=== PATIENT | female | born 1945 | race Caucasian/White ===

== ENCOUNTER 2018-08-08 13:14 | Inpatient (IN) | payer OTHER ==
[~2018-08-08] VITALS: Ht 154.9 cm; Wt 55.8 kg
[2018-08-08 13:56] LABS: MEAN CORPUSCULAR HEMOGLOBIN 32.8 pg (27.0-34.8); MEAN CORPUSCULAR HGB CONC 33.5 g/dL (32.4-35.8); MEAN PLATELET VOLUME 7.4 fL (7.4-10.4); PLATELET COUNT 228 x10^3/uL (130-400); RED BLOOD COUNT 4.24 x10^6/uL (3.82-5.3)
[2018-08-08 14:03] LABS: ANION GAP 6 mmol/L (5-15); CHLORIDE 101 mmol/L (98-107)
[2018-08-08 14:05] LABS: CREATININE 1.17 mg/dL (0.55-1.02)
[2018-08-08] MEDS ORDERED: AZITHROMYCIN 500 MG in SODIUM CHLORIDE 0.9% 250 ML IV ONE (14:30)
[2018-08-08] MEDS ORDERED: CEFTRIAXONE PMX 1GM/50ML 50 ML IVPB ONE (14:30)
[2018-08-08 14:31] LABS: BASOPHILS # (AUTO) 0.03 x10^3/uL (0-0.1); BASOPHILS % (AUTO) 0 % (0-1); EOSINOPHILS # (AUTO) 0.04 x10^3/uL (0-0.4); EOSINOPHILS % (AUTO) 0 % (1-7); LYMPHOCYTES # (AUTO) 1.35 x10^3/uL (1-3.4); LYMPHOCYTES % (AUTO) 6 % (22-44); MD SCAN; MONOCYTES # (AUTO) 1.21 x10^3/uL (0.2-0.8); MONOCYTES % (AUTO) 5 % (2-9); NEUTROPHILS # (AUTO) 21.47 x10^3/uL (1.8-6.8); NEUTROPHILS % (AUTO) 89 % (42-75)
[2018-08-08 14:32] LABS: FREE T4 (FREE THYROXINE) 1.34 ng/dL (0.76-1.46); THYROID STIMULATING HORMONE 3.3 mIU/L (0.358-3.740)
[2018-08-08] MEDS ORDERED: CEFTRIAXONE PMX 1GM/50ML 50 ML ONE (14:50)
[2018-08-08] MEDS ORDERED: SODIUM CHLORIDE FLUSH 10ML SYR IVF PRN (15:30)
[2018-08-08] MEDS ORDERED: MAGN400T36 PO (15:42)
[2018-08-08] MEDS ORDERED: ROSU20TA PO (15:42)
[2018-08-08] MEDS ORDERED: ASPI-515 PO (15:42)
[2018-08-08] MEDS ORDERED: LOSA25TA6 PO (15:42)
[2018-08-08] MEDS ORDERED: POTA25TA4 PO (15:42)
[2018-08-08] MEDS ORDERED: LEVO25TA4 PO (15:42)
[2018-08-08] MEDS ORDERED: BISO5TAB2 PO (15:42)
[2018-08-08] MEDS ORDERED: METF500T27 PO (15:42)
[2018-08-08] MEDS ORDERED: CHOL100014 PO (15:42)
[2018-08-08] MEDS ORDERED: BUPR150T73 PO (15:42)
[2018-08-08 16:11] VITALS: BP 144/81
[2018-08-08] MEDS ORDERED: ONDANSETRON 2MG/ML, 2ML IVPush PRN (17:30)
[2018-08-08] MEDS ORDERED: LABETALOL 5MG/ML, 20ML IVPush PRN (17:30)
[2018-08-08] MEDS ORDERED: ONDANSETRON ODT 4 MG PO PRN (17:30)
[2018-08-08] MEDS ORDERED: POLYETHYLENE GLYCOL 17 GM PACKET PO PRN (17:30)
[2018-08-08] MEDS ORDERED: morphine SULFATE 10 MG/ML, 1ML IVPush PRN (17:30)
[2018-08-08] MEDS ORDERED: ALBUTEROL SULFATE 2.5 MG/3 ML ONE (17:43)
[2018-08-08] MEDS: ALBUTEROL SULFATE 2.5 MG/3 ML NPPB PRN (17:45)
[2018-08-08 17:54] LABS: CHOL/HDL RATIO 3.8; LDL/HDL RATIO 1.7 (0.5-3.0)
[2018-08-08] MEDS: ENOXAPARIN 40 MG/0.4 ML SQ SCH (18:00)
[2018-08-08] MEDS: SODIUM CHLORIDE 0.9% 1,000 ML IV SCH (18:37)
[2018-08-08 18:40] VITALS: BP 122/69
[2018-08-08] MEDS ORDERED: TEMPLATE NON-FORMULARY MED. (Rosuvastatin Calcium** (Crestor**) 20 MG) PO SCH (21:00)
[2018-08-08] MEDS: BUPROPION SR 150 MG TABLET PO SCH (21:49)
[2018-08-08] MEDS: ATORVASTATIN 40 MG TABLET PO SCH (21:49)
[2018-08-09 01:47] VITALS: BP 126/70
[2018-08-09] MEDS: SODIUM CHLORIDE 0.9% 1,000 ML IV SCH ×3 (02:36→18:09)
[2018-08-09 05:57] LABS: CHLORIDE 111 mmol/L (98-107)
[2018-08-09 06:18] LABS: ALANINE AMINOTRANSFERASE 25 U/L (12-78); ALBUMIN 2.3 g/dL (3.4-5.0); ALKALINE PHOSPHATASE 89 U/L (45-117); ANION GAP 7 mmol/L (5-15); BILIRUBIN,TOTAL 0.8 mg/dL (0.2-1.0); CALCIUM 8.1 mg/dL (8.5-10.1); CREATININE 0.77 mg/dL (0.55-1.02)
[2018-08-09 06:21] LABS: HEMOGLOBIN A1C 5.8 % (4.2-6.3)
[2018-08-09] MEDS: ALBUTEROL SULFATE 2.5 MG/3 ML NPPB SCH ×5 (07:00→19:25)
[2018-08-09 07:13] VITALS: BP 108/60
[2018-08-09 07:24] LABS: MEAN CORPUSCULAR HEMOGLOBIN 32.5 pg (27.0-34.8); MEAN CORPUSCULAR HGB CONC 33.7 g/dL (32.4-35.8); MEAN CORPUSCULAR VOLUME 96.5 fL (80-100); MEAN PLATELET VOLUME 7.8 fL (7.4-10.4); PLATELET COUNT 193 x10^3/uL (130-400); RED BLOOD COUNT 3.56 x10^6/uL (3.82-5.3); RED CELL DISTRIBUTION WIDTH 14.2 % (9.6-15.2)
[2018-08-09 07:25] LABS: MD YES
[2018-08-09 08:14] LABS: <PLATELET ESTIMATE> ADEQUATE; <PLT MORPHOLOGY> NORMAL PLT MORPH; <RBC MORPHOLOGY> NORMAL; EOS#(MANUAL) 0.28 x10^3/uL (0.0-0.4); EOS% (MANUAL) 2 % (1-7); LYMPH#(MANUAL) 1.95 x10^3/uL (1-3.4); LYMPHS% (MANUAL) 14 % (22-44); MONOS#(MANUAL) 0.28 x10^3/uL (0.3-2.7); MONOS% (MANUAL) 2 % (2-9); SEGS% (MANUAL) 82 % (42-75)
[2018-08-09] MEDS: SENNA/DOCUSATE TABLET PO SCH (08:36)
[2018-08-09] MEDS: LEVOTHYROXINE 50 MCG TABLET PO SCH (08:38)
[2018-08-09] MEDS: CHOLECALCIFEROL 1,000 UNIT TABLET PO SCH (08:38)
[2018-08-09] MEDS: ASPIRIN 81 MG TABLET EC PO SCH (08:38)
[2018-08-09] MEDS: LOSARTAN 50MG TABLET PO SCH (08:39)
[2018-08-09] MEDS: BUPROPION SR 150 MG TABLET PO SCH ×2 (08:39→20:38)
[2018-08-09] MEDS: MAGNESIUM OXIDE 400 MG TABLET PO SCH (08:39)
[2018-08-09] MEDS: GUAIFENESIN 200 MG TABLET PO SCH ×3 (11:59→20:37)
[2018-08-09 14:15] VITALS: BP 105/62
[2018-08-09] MEDS: ENOXAPARIN 40 MG/0.4 ML SQ SCH (18:00)
[2018-08-09 19:17] VITALS: BP 158/75
[2018-08-09] MEDS: ATORVASTATIN 40 MG TABLET PO SCH (20:37)
[2018-08-10 01:52] VITALS: BP 129/66
[2018-08-10] MEDS: SODIUM CHLORIDE 0.9% 1,000 ML IV SCH ×2 (01:52→08:14)
[2018-08-10 05:21] LABS: MEAN CORPUSCULAR HEMOGLOBIN 33.3 pg (27.0-34.8); MEAN CORPUSCULAR HGB CONC 34.2 g/dL (32.4-35.8); MEAN CORPUSCULAR VOLUME 97.6 fL (80-100); MEAN PLATELET VOLUME 7.6 fL (7.4-10.4); PLATELET COUNT 224 x10^3/uL (130-400); RED BLOOD COUNT 3.38 x10^6/uL (3.82-5.3); RED CELL DISTRIBUTION WIDTH 14.3 % (9.6-15.2)
[2018-08-10 05:31] LABS: ALBUMIN 2.4 g/dL (3.4-5.0); ANION GAP 8 mmol/L (5-15); CALCIUM 8.4 mg/dL (8.5-10.1); CHLORIDE 113 mmol/L (98-107); CREATININE 0.66 mg/dL (0.55-1.02)
[2018-08-10 06:08] LABS: MD YES
[2018-08-10 06:11] LABS: <PLATELET ESTIMATE> ADEQUATE; <PLT MORPHOLOGY> NORMAL PLT MORPH; <RBC MORPHOLOGY> NORMAL; BAND#(MANUAL) 0.23 x10^3/uL; BANDS%(MANUAL) 2 % (0-7); BASOS#(MANUAL) 0.23 x10^3/uL (0-0.1); BASOS% (MANUAL) 2 % (0-1); EOS#(MANUAL) 0.11 x10^3/uL (0.0-0.4); EOS% (MANUAL) 1 % (1-7); LYMPH#(MANUAL) 1.71 x10^3/uL (1-3.4); LYMPHS% (MANUAL) 15 % (22-44); METAMYELOCYTES# (MANUAL) 0.11 x10^3/uL (0-0); METAMYELOCYTES% (MANUAL) 1 % (0-1); MONOS#(MANUAL) 0.46 x10^3/uL (0.3-2.7); MONOS% (MANUAL) 4 % (2-9); MYELOCYTES# (MANUAL) 0.11 x10^3/uL (0-0); MYELOCYTES% (MANUAL) 1 % (0-0); SEG#(MANUAL) 8.44 x10^3/uL (1.8-6.8); SEGS% (MANUAL) 74 % (42-75)
[2018-08-10] MEDS: GUAIFENESIN 200 MG TABLET PO SCH ×4 (06:38→20:52)
[2018-08-10 07:18] VITALS: BP 135/67
[2018-08-10] MEDS ORDERED: MAGNESIUM SULFATE PMX 2GM/50ML 50 ML IV ONE (07:30)
[2018-08-10] MEDS: ALBUTEROL SULFATE 2.5 MG/3 ML NPPB SCH ×4 (07:30→18:44)
[2018-08-10] MEDS: CHOLECALCIFEROL 1,000 UNIT TABLET PO SCH (08:08)
[2018-08-10] MEDS: BUPROPION SR 150 MG TABLET PO SCH ×2 (08:09→20:52)
[2018-08-10] MEDS: ASPIRIN 81 MG TABLET EC PO SCH (08:09)
[2018-08-10] MEDS: LEVOTHYROXINE 50 MCG TABLET PO SCH (08:10)
[2018-08-10] MEDS: LOSARTAN 50MG TABLET PO SCH (08:10)
[2018-08-10] MEDS: MAGNESIUM OXIDE 400 MG TABLET PO SCH (08:11)
[2018-08-10] MEDS: SENNA/DOCUSATE TABLET PO SCH (08:12)
[2018-08-10] MEDS: CEFTRIAXONE PMX 1GM/50ML 50 ML IV SCH (11:13)
[2018-08-10 12:58] VITALS: BP 138/65
[2018-08-10] MEDS: ENOXAPARIN 40 MG/0.4 ML SQ SCH (16:44)
[2018-08-10] MEDS: ACETAMINOPHEN 325 MG TABLET PO PRN (16:54)
[2018-08-10 18:37] VITALS: BP 134/55
[2018-08-10] MEDS: ATORVASTATIN 40 MG TABLET PO SCH (20:52)
[2018-08-11 00:31] VITALS: BP 148/75
[2018-08-11] MEDS: ACETAMINOPHEN 325 MG TABLET PO PRN ×3 (00:31→12:51)
[2018-08-11] MEDS: GUAIFENESIN 200 MG TABLET PO SCH ×2 (05:13→10:34)
[2018-08-11 06:46] LABS: BASOPHILS # (AUTO) 0.03 x10^3/uL (0-0.1); BASOPHILS % (AUTO) 0 % (0-1); EOSINOPHILS # (AUTO) 0.18 x10^3/uL (0-0.4); EOSINOPHILS % (AUTO) 2 % (1-7); LYMPHOCYTES # (AUTO) 1.16 x10^3/uL (1-3.4); LYMPHOCYTES % (AUTO) 10 % (22-44); MD NO; MEAN CORPUSCULAR HEMOGLOBIN 33.2 pg (27.0-34.8); MEAN CORPUSCULAR HGB CONC 34.3 g/dL (32.4-35.8); MEAN CORPUSCULAR VOLUME 96.8 fL (80-100); MEAN PLATELET VOLUME 7.3 fL (7.4-10.4); MONOCYTES # (AUTO) 1.38 x10^3/uL (0.2-0.8); MONOCYTES % (AUTO) 12 % (2-9); NEUTROPHILS # (AUTO) 8.87 x10^3/uL (1.8-6.8); NEUTROPHILS % (AUTO) 76 % (42-75); PLATELET COUNT 265 x10^3/uL (130-400); RED BLOOD COUNT 3.88 x10^6/uL (3.82-5.3); RED CELL DISTRIBUTION WIDTH 14.4 % (9.6-15.2)
[2018-08-11 06:50] VITALS: BP 151/89
[2018-08-11 06:56] LABS: ALBUMIN 2.6 g/dL (3.4-5.0); ANION GAP 8 mmol/L (5-15); CALCIUM 9.2 mg/dL (8.5-10.1); CHLORIDE 110 mmol/L (98-107); CREATININE 0.65 mg/dL (0.55-1.02)
[2018-08-11] MEDS: ALBUTEROL SULFATE 2.5 MG/3 ML NPPB PRN (07:05)
[2018-08-11] MEDS: BUPROPION SR 150 MG TABLET PO SCH (08:00)
[2018-08-11] MEDS: CHOLECALCIFEROL 1,000 UNIT TABLET PO SCH (08:00)
[2018-08-11] MEDS: ASPIRIN 81 MG TABLET EC PO SCH (08:00)
[2018-08-11] MEDS: MAGNESIUM OXIDE 400 MG TABLET PO SCH (08:01)
[2018-08-11] MEDS: LOSARTAN 50MG TABLET PO SCH (08:01)
[2018-08-11] MEDS: LEVOTHYROXINE 50 MCG TABLET PO SCH (08:01)
[2018-08-11] MEDS: SENNA/DOCUSATE TABLET PO SCH (08:01)
[2018-08-11] MEDS: CEFTRIAXONE PMX 1GM/50ML 50 ML IV SCH (10:34)
[2018-08-11] MEDS ORDERED: DOXY100T PO (10:38)
[2018-08-11] MEDS ORDERED: CEFD300C37 PO (10:38)
[2018-08-11] MEDS ORDERED: ALBUTEROL SULFATE 2.5 MG/3 ML NPPB SCH (11:00)
== END 2018-08-11 13:33 | disposition home or self-care (01) | DRG 871 ==
LOC: ED 15:56 → EDIP 16:09 → 3NE 16:47 → DCLOUNGE 08-11 13:23
PROVIDERS: ADMIT Hospitalist; ATTEND Hospitalist
DX: A41.9 Sepsis, unspecified organism (principal); J15.9 Unspecified bacterial pneumonia; N17.0 Acute kidney failure with tubular necrosis; J44.0 Chronic obstructive pulmonary disease with (acute) lower respiratory infection; E87.1 Hypo-osmolality and hyponatremia; R09.81 Nasal congestion; E03.9 Hypothyroidism, unspecified; E78.00 Pure hypercholesterolemia, unspecified; E11.649 Type 2 diabetes mellitus with hypoglycemia without coma; E78.5 Hyperlipidemia, unspecified; E86.0 Dehydration; F17.200 Nicotine dependence, unspecified, uncomplicated; I10 Essential (primary) hypertension; I35.1 Nonrheumatic aortic (valve) insufficiency; Z90.710 Acquired absence of both cervix and uterus
CPT/HCPCS: 36415; 71045; 80048; 80053; 80061; 82040; 83036; 83605; 83735; 84100; 84145; 84439; 84443; 85025; 87040; 93005; 93306; 94640; 96365; 96375; 99285; G0378; J0456; J0696; J7613; J3475; J7030; J7050

== ENCOUNTER 2019-05-28 08:33 | Emergency (ER) | payer OTHER ==
[~2019-05-28] VITALS: Ht 154.9 cm; Wt 51.9 kg
[~2019-05-28 08:33] MED LIST: ASPI-515 PO; BISO5TAB4 PO; BUPR150T73 PO; CEFD300C37 PO; CHOL100014 PO; DOXY100T PO; LEVO25TA4 PO; LOSA25TA25 PO; MAGN400T36 PO; METF500T27 PO; POTA25TA4 PO; ROSU20TA2 PO
--- NOTE | 2019-05-28 08:53 | NUR ---
PT HAS CO OF DEHYDRATION, NAUSEA, AND WEEKNESS, DIARHEA. PT STARTS " SYMPTOMS STARTED 2 WEEKS AGO WENT TO URGENT CARE, THAT SUBSIDED, UNTIL EARLY THIS AM, HAD DIARRHEA, MY STOMACH WAS HARD, AND VOMITED" PT IS RESTING COMFORTABLE. NO SIGNS OF DISTRESS.
[2019-05-28] MEDS ORDERED: METF-649 PO (08:59)
[2019-05-28] MEDS ORDERED: ONDANSETRON ODT 4 MG PO ONE (09:00)
[2019-05-28 09:09] LABS: MEAN CORPUSCULAR HGB CONC 33.1 g/dL (32.4-35.8); MEAN CORPUSCULAR VOLUME 96.8 fL (80-100); PLATELET COUNT 314 x10^3/uL (130-400); RED BLOOD COUNT 4.76 x10^6/uL (3.82-5.3)
[2019-05-28 09:23] LABS: ALBUMIN 3.6 g/dL (3.4-5.0); ANION GAP 9 mmol/L (5-15); CALCIUM 8.5 mg/dL (8.5-10.1); CHLORIDE 111 mmol/L (98-107)
[2019-05-28 09:24] LABS: MD YES
[2019-05-28 09:25] LABS: BAND#(MANUAL) 0.55 x10^3/uL; BANDS%(MANUAL) 2 % (0-7); LYMPH#(MANUAL) 0.55 x10^3/uL (1-3.4); LYMPHS% (MANUAL) 2 % (22-44); MONOS#(MANUAL) 0.83 x10^3/uL (0.3-2.7); MONOS% (MANUAL) 3 % (2-9); SEG#(MANUAL) 25.58 x10^3/uL (1.8-6.8); SEGS% (MANUAL) 93 % (42-75)
[2019-05-28 09:26] LABS: <RBC MORPHOLOGY> NORMAL; PMNS WITH VACUOLES 1+
[2019-05-28 09:27] LABS: <PLATELET ESTIMATE> ADEQUATE; <PLT MORPHOLOGY> NORMAL PLT MORPH
[2019-05-28] MEDS ORDERED: ONDANSETRON ODT 4 MG ONE (09:39)
[2019-05-28] MEDS ORDERED: SODIUM CHLORIDE 0.9% 1,000ML IVBOLUS ONE (10:00)
[2019-05-28] MEDS ORDERED: SODIUM CHLORIDE FLUSH 10ML SYR IVF ONE (10:00)
--- NOTE | 2019-05-28 10:42 | NUR ---
IV STARTED PT TOLERATED WELL, IV INFUSING WELL. PT DENIES ANY PAIN AT THIS TIME
--- NOTE | 2019-05-28 11:57 | NUR ---
PT AMBULATED TO BATHROOM STEADY. UA OBTAINED.
[2019-05-28 12:01] LABS: MICROSCOPIC AUTO
[2019-05-28 12:02] LABS: CULTURE INDICATED? NO
--- NOTE | 2019-05-28 12:27 | NUR ---
PT TO CT.
--- NOTE | 2019-05-28 13:38 | NUR ---
PT RESTING COMFORTABLE. NO N/V/D AT THIS TIME.
[2019-05-28 13:42] VITALS: BP 138/60
--- NOTE | 2019-05-28 13:43 | NUR ---
Patient/Caregiver given discharge instructions and they have confirmed that they understand the instructions. Patient ambulatory with steady gait.
[2019-05-28] MEDS ORDERED: OMNIPAQUE 350 MG/ML, 100ML BOTTLE ONE (16:49)
== END 2019-05-28 13:57 | disposition home or self-care (01) ==
LOC: ED 09:05
DX: K52.9 Noninfective gastroenteritis and colitis, unspecified (principal); N28.9 Disorder of kidney and ureter, unspecified; D72.829 Elevated white blood cell count, unspecified; E11.9 Type 2 diabetes mellitus without complications; Z87.891 Personal history of nicotine dependence
CPT/HCPCS: 36415; 74021; 74177; 80048; 81001; 82040; 83605; 84145; 85025; 87040; 96360; 99284; J7030; Q0162; Q9967

== ENCOUNTER 2021-05-03 12:00 | Emergency (ER) | payer MEDICARE, OTHER ==
[~2021-05-03] VITALS: Ht 152.4 cm; Wt 56.0 kg
[~2021-05-03 12:00] MED LIST changes: -ASPI-515 PO; +ASPI-963 PO; -BISO5TAB4 PO; +BISO5TAB8 PO; +METF-734 PO
--- NOTE | 2021-05-03 12:38 | NUR ---
PT CAME IN CO "ALL BEEN FEELING DIZZY THE PAST COUPLE OF DAYS AND TODAY I FELT DIZZY AND I TRIPPED ON A STAIR HITTING MY HEAD." PT HAS A HEMATOMA ON HER LEFT EYE AND STATES HER VISION IS A LITTLE BLURRY. PT RESTING IN [facility]. CONNECTED TO MONITORING EQUIPMENT. BLANKET PROVIDED.
[2021-05-03 12:59] LABS: BASOPHILS % (AUTO) 1 % (0-1); EOSINOPHILS % (AUTO) 2 % (1-7); LYMPHOCYTES % (AUTO) 21 % (22-44); MEAN CORPUSCULAR HEMOGLOBIN 33.3 pg (27.0-34.8); MEAN CORPUSCULAR HGB CONC 33.9 g/dL (32.4-35.8); MEAN PLATELET VOLUME 7.4 fL (7.4-10.4); MONOCYTES % (AUTO) 10 % (2-9); NEUTROPHILS % (AUTO) 66 % (42-75); PLATELET COUNT 269 x10^3/uL (130-400); RED BLOOD COUNT 4.32 x10^6/uL (3.82-5.3); RED CELL DISTRIBUTION WIDTH 13.8 % (9.6-15.2)
[2021-05-03 13:02] VITALS: BP 169/55
[2021-05-03 13:12] LABS: ALBUMIN 3.7 g/dL (3.4-5.0); ANION GAP 6 mmol/L (5-15); CALCIUM 9.1 mg/dL (8.5-10.1); CHLORIDE 108 mmol/L (98-107); CREATININE 0.93 mg/dL (0.55-1.02)
[2021-05-03 13:16] LABS: TROPONIN I < 0.015 ng/mL (0.000-0.045)
[2021-05-03] MEDS ORDERED: ACETAMINOPHEN 500 MG TABLET ONE (13:58)
[2021-05-03] MEDS ORDERED: ACETAMINOPHEN 500 MG TABLET PO ONE (14:00)
== END 2021-05-03 14:57 | disposition home or self-care (01) ==
LOC: ED 12:44
DX: S00.12XA Contusion of left eyelid and periocular area, initial encounter (principal); S05.12XA Contusion of eyeball and orbital tissues, left eye, initial encounter; R94.31 Abnormal electrocardiogram [ECG] [EKG]; E11.9 Type 2 diabetes mellitus without complications; F17.200 Nicotine dependence, unspecified, uncomplicated; W18.30XA Fall on same level, unspecified, initial encounter; Y93.89 Activity, other specified; Y92.89 Other specified places as the place of occurrence of the external cause; Y99.8 Other external cause status
CPT/HCPCS: 36415; 70450; 80048; 82040; 84484; 85025; 93005; 99285